=== PATIENT | female | born 2005 | race Two or more races ===

== ENCOUNTER 2025-01-20 15:36 | Emergency (ER) | payer OTHER ==
[~2025-01-20] VITALS: Ht 157.5 cm; Wt 74.8 kg
[2025-01-20 17:00] VITALS: BP 118/68; O2SAT 100
[2025-01-20 17:43] LABS: BASO % 0.5 % (0.1-1.2); EOS # 0.23 (0.04-0.54); EOS % 2.2 % (0.7-7.0); LYMPH # 1.96 (1.18-3.74); LYMPH % 18.3 % (19.3-53.1); MEAN PLATELET VOLUME 9.30 fl (9.4-12.4); MONO # 0.75 (0.24-0.82); MONO % 7.0 % (4.7-12.5); NEUT # 7.68 (1.56-6.13); NEUT % 71.8 % (34.0-71.1); RED CELL DISTRIBUTION WIDTH 12.7 % (11.6-14.4)
[2025-01-20 18:20] LABS: COVID-19 AG NEGATIVE (NEGATIVE)
== END 2025-01-20 18:27 | disposition home or self-care (01) ==
LOC: ER 15:36
PROVIDERS: General Practice
DX: O99.511 Diseases of the respiratory system complicating pregnancy, first trimester (principal); J06.9 Acute upper respiratory infection, unspecified; Z20.822 Contact with and (suspected) exposure to COVID-19

== ENCOUNTER 2025-03-19 10:17 | Outpatient (CLI) | payer OTHER | END 2025-03-19 10:18 | disposition home or self-care (01) | LOC: PRENATAL 10:17 | PROVIDERS: ATTEND Obstetrics & Gynecology Maternal & Fetal Medicine | DX: O44.02 Complete placenta previa NOS or without hemorrhage, second trimester (principal); Z3A.21 21 weeks gestation of pregnancy ==

== ENCOUNTER 2025-04-02 16:33 | Emergency (ER) | payer OTHER ==
[~2025-04-02] VITALS: Ht 157.5 cm; Wt 73.9 kg
[2025-04-02] MEDS ORDERED: PRENATA CHEWAB1 EACH (18:09)
[2025-04-02] MEDS ORDERED: LEVALBUTER0.63 MG/3 IH (19:26)
[2025-04-02] MEDS ORDERED: PEPCID AC20 MG PO (19:26)
[2025-04-02] MEDS ORDERED: SINGULAIR10 MG PO (19:26)
[2025-04-02] MEDS ORDERED: ZOFRAN8 MG PO (19:26)
[2025-04-02] MEDS ORDERED: PROAIR RESPICL90 MCG IH (19:26)
== END 2025-04-02 23:09 | disposition home or self-care (01) ==
LOC: ER 16:34
DX: O99.512 Diseases of the respiratory system complicating pregnancy, second trimester (principal); Z88.1 Allergy status to other antibiotic agents; Z3A.22 22 weeks gestation of pregnancy; J45.901 Unspecified asthma with (acute) exacerbation

== ENCOUNTER 2025-04-26 20:40 | Outpatient (CLI) | payer OTHER ==
[~2025-04-26] VITALS: Ht 157.5 cm; Wt 76.2 kg
[2025-04-26 20:00] VITALS: BP 118/71; O2SAT 99
[~2025-04-26 20:40] MED LIST: LEVALBUTER0.63 MG/3 IH; PEPCID AC20 MG PO; PRENATA CHEWAB1 EACH; PROAIR RESPICL90 MCG IH; SINGULAIR10 MG PO; ZOFRAN8 MG PO
[2025-04-26] MEDS ORDERED: PRENATAL TABLE1 EAC1 PO (20:57)
[2025-04-26] MEDS ORDERED: RINGERS SOLUTION,LACTATED 1,000 ML IV SCH (21:15)
[2025-04-26 22:22] VITALS: BP 120/65
== END 2025-04-26 22:26 | disposition home or self-care (01) ==
LOC: OBS/DEL 20:40
PROVIDERS: ATTEND Obstetrics & Gynecology
DX: O36.8120 Decreased fetal movements, second trimester, not applicable or unspecified (principal); Z3A.26 26 weeks gestation of pregnancy